=== PATIENT | male | born 1985 | race Caucasian/White ===

== ENCOUNTER 2018-07-09 14:17 | Emergency (ER) | payer OTHER ==
[2018-07-09] MEDS ORDERED: Bacitracin Zinc 1 Packet ONE ×2 (15:36→16:25)
--- NOTE | 2018-07-09 15:39 | RAD ---
RIGHT HAND 3 VIEWS: DATE: 07/09/18 HISTORY: Injury, right hand pain, punched wall last night. FINDINGS/IMPRESSION: No acute fracture or dislocation is identified. POS: [facility]
[2018-07-09] MEDS ORDERED: Adacel (T-DAP) 0.5 ML SYRINGE ONE (16:25)
== END 2018-07-09 16:50 | disposition home or self-care (01) ==
LOC: ERS 14:17
DX: S60.221A Contusion of right hand, initial encounter (principal); W22.01XA Walked into wall, initial encounter
CPT/HCPCS: 90471; 90715